=== PATIENT | male | born 1945 | race Caucasian/White ===

== ENCOUNTER 2023-04-25 07:33 | Emergency (ER) | payer OTHER ==
[2023-04-25 08:10] LABS: Absolute Lymphocytes (CBC) 1.1 K/uL (0.7-4.9); Hematocrit 37.5 % (39.6-49.0); Lymphocytes % 13.6 % (15.3-44.8); MCV 85.5 fL (80-100); MPV 9.3 fL (7.6-11.3); RBC Red Blood Cell Count 4.39 M/uL (4.33-5.43)
--- NOTE | 2023-04-25 08:13 | RAD REPORT ---
EXAM DESCRIPTION: CT - Head Brain Wo Cont - 04/25/2023 8:01 am CLINICAL HISTORY: confusion, VH Headache, drowsiness COMPARISON: <Comparisons> TECHNIQUE: All CT scans are performed using dose optimization technique as appropriate and may inclu de automated exposure control or mA/KV adjustment according to patient size. FINDINGS: No intracranial hemorrhage, hydrocephalus or extra-axial fluid collection.Mild brain atrop hy.No areas of brain edema or evidence of midline shift. Mild vertebral atherosclerosis. The paranasal sinuses and mastoids are clear. The calvarium is intact. IMPRESSION: No acute intracranial abnormality.
--- NOTE | 2023-04-25 08:18 | RAD REPORT ---
EXAM DESCRIPTION: RAD - Chest Single View - 04/25/2023 8:13 am CLINICAL HISTORY: AMS Chest pain. COMPARISON: <Comparisons> FINDINGS: Portable technique limits examination quality. The lungs are grossly clear. The heart is mildly enlarged in size. No displaced fractures.Mild dextro scoliosis of the thoracic spine. IMPRESSION: No acute intrathoracic process suspected.
[2023-04-25 08:26] LABS: Albumin 4.5 g/dL (3.4-5.0); Bilirubin Direct 0.4 mg/dL (0-0.2); Bilirubin Indirect, Calculated 1.1 mg/dL (0.2-0.8); Bilirubin Total 1.5 mg/dL (0.2-1.0); Potassium 3.8 mEq/L (3.5-5.1); Protein, Total 7.5 g/dL (6.4-8.2); Troponin High Sensitivity 7.8 pg/mL (<58.9)
[2023-04-25 08:50] LABS: Urine Bacteria None Seen /HPF (<20); Urine Bilirubin NEGATIVE (Negative); Urine Blood Negative (Negative); Urine Clarity Clear (Clear); Urine Color Yellow (Yellow); Urine Glucose NEGATIVE (Negative); Urine Mucus Slight /HPF (None Seen); Urine Protein TRACE (Negative); Urine RBC <5 /HPF (None Seen); Urine Urobilinogen Normal (Normal)
[2023-04-25 08:54] LABS: Protime INR 0.88
[2023-04-25] MEDS ORDERED: NA CHLORIDE 0.9% 500 ML ONE (09:16)
[2023-04-25 09:46] LABS: Barbiturates NEGATIVE (NEGATIVE); Benzodiazepines NEGATIVE (NEGATIVE); Cocaine NEGATIVE (NEGATIVE); METHAMPHETAM NEGATIVE (NEGATIVE); Methadone NEGATIVE (NEGATIVE); Opiates NEGATIVE (NEGATIVE); Phencyclidine NEGATIVE (NEGATIVE); THC Cannibis NEGATIVE (NEGATIVE)
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
[2023-04-25 12:01] VITALS: TEMP 98.2
[2023-04-25 12:18] VITALS: BP 121/71; O2SAT 99
--- NOTE | 2023-04-26 08:51 | EKG ---
Test Date: 2023-04-25 Test Time: 07:53:39 Executive Director [employer]: [employer] MEASUREMENT RESULTS: Intervals: Rate: 81 IA: 148 QRSD: 88 QT: 374 QTc: 434 [place]: P: 51 IA: 148 QRS: 27 T: 23 INTERPRETIVE STATEMENTS: Normal sinus rhythm Normal ECG No previous ECG available for comparison Electronically Signed On 04-26-23 08:48:20 CDT by Odell London
== END 2023-04-25 11:53 | disposition home or self-care (01) ==
LOC: ER 07:33
DX: F03.918 Unspecified dementia, unspecified severity, with other behavioral disturbance (principal); I10 Essential (primary) hypertension; Z91.041 Radiographic dye allergy status
CPT/HCPCS: 85025; 81001; 80048; 36415; 85610; 80076; 85730; 84484; 80307; 70450; 71045; J7040; 93005